=== PATIENT | female | born 1940 | race Two or more races ===

== ENCOUNTER 2025-11-09 07:12 | Inpatient (IN) | payer OTHER, MEDICAID ==
[~2025-11-09] VITALS: Ht 154.9 cm; Wt 59.5 kg
[2025-11-09] MEDS: SODIUM CHLORIDE 0.9% 1,000 ML IV ONE ×2 (07:30→09:14)
--- NOTE | 2025-11-09 07:39 | ED.PDOC ---
History of Present Illness HPI Comments 85-year-old female who is Syriac-speaking BIBA with prior medical history of MANOKOTAK, hypertension, diabetes(took insulin prior to bed last night) and a chief complaint of hyperglycemia. EMS report on the patient being found altered by family at home of a GCS 9 and unresponsive when EMS arrived on scene the patient did have a blood sugar of 34 and was given 250 of D10 EN route. In the ER the patient is currently GCS 15 A&O x4. Denies any other symptoms at this time. Denies chills, fever, N/V/D, SOB, CP. No other associated symptoms, modifiers, recent injuries or sick contacts present at this time. Time Seen by MD: 07:35 Reviewed Notes: Nurses Notes, Button Tufter Notes, Medications, Allergies Allergies: Coded Allergies: NO KNOWN ALLERGIES (Unverified , 11/09/25) Information Source: Patient, Emergency Med Personnel Mode of Arrival: EMS Severity: Moderate Timing: Hours Duration: Since onset, Hours Prehospital treatment: None Past Medical History PAST MEDICAL HISTORY: DM, HTN Past Medical History (Other): MAN[place]OTAK Surgical History: Denies all surgeries SEISMOGRAPH SUPERVISOR History: No Pertinent SEISMOGRAPH SUPERVISOR History Family History Family History: Reviewed,noncontributory to illness, Unknown Social History Smoker: Non-Smoker Alcohol: Denies ETOH Use Drugs: Denies Drug Use Lives In: Home Constitutional: reports: others (Hyperglycemia); denies: chills, diaphoresis, fatigue, fever, malaise, sweats, weakness EENTM: denies: blurred vision, double vision, ear bleeding, ear discharge, ear drainage, ear pain, ear ringing, eye pain, eye redness, hearing loss, mouth pain, mouth swelling, nasal discharge, nose bleeding, nose congestion, nose pain, photophobia, tearing, throat pain, throat swelling, voice changes, others Respiratory: denies: cough, hemoptysis, orthopnea, SOB at rest, shortness of breath, SOB with excertion, stridor, wheezing, others Cardiovascular: denies: chest pain, dizzy spells, diaphoresis, Dyspnea on exertion, edema, irregular heart beat, left arm pain, lightheadedness, palpitations, PND, syncope, others Gastrointestinal: denies: abdomen distended, abdominal pain, blood streaked bowels, constipated, diarrhea, dysphagia, difficulty swallowing, hematemesis, melena, nausea, poor appetite, poor fluid intake, rectal bleeding, rectal pain, vomiting, others Genitourinary: denies: abnormal vagina bleeding, burning, dyspareunia, dysuria, flank pain, frequency, hematuria, incontinence, pain, , vagina discharge, urgency, others Neurological: denies: dizziness, fainting, headache, left sided numbness, left sided weakness, numbness, paresthesia, pre-existing deficit, right sided numbness, right sided weakness, seizure, speech problems, tingling, tremors, weakness, others Musculoskeletal: denies: back pain, gout, joint pain, joint swelling, muscle pain, muscle stiffness, neck pain, others Integumetry: denies: bruises, change in color, change in hair/nails, dryness, laceration, lesions, lumps, rash, wounds, others Allergic/Immunocompromised: denies: Difficulty Healing, Frequent Infections, Hives, Itching, others Hematologic/Lymphatic: denies: anemia, blood clots, easy bleeding, easy bruising, swollen glands, others Endocrine: denies: excessive hunger, excessive sweating, excessive thirst, excessive urination, flushing, intolerance to cold, intolerance to heat, unexplained weight gain, unexplained weight loss, others Psychiatric: denies: anxiety, bipolar disorder, depression, hopeless, panic disorder, schizophrenia, sleepless, suicidal, others All Other Systems: Reviewed and Negative Physical Exam General Appearance: Moderate Distress, Normal HEENT: Normal ENT Inspection, Pharynx Normal, TMs Normal Neck: Full Range of Motion, Non-Tender, Normal, Normal Inspection Respiratory: Chest Non-Tender, Lungs Clear, No Accessory Muscle Use, No Respiratory Distress, Normal Breath Sounds Cardiovascular: No Edema, No JVD, No Murmur, No Gallop, Normal Peripheral Pulses, Regular Rate/Rhythm Breast Exam: Deferred Gastrointestinal: No Organomegaly, Non Tender, No Pulsatile Mass, Normal Bowel Sounds, Soft Genitalia: Deferred Pelvic: Deferred Rectal: Deferred Extremities: No calf tenderness, Normal capillary refill, Normal inspection, Normal range of motion, Non-tender, No pedal edema Musculoskeletal : Apperance: Normal 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 Was a procedure done?: No Differential Dx Considerations may include: Anemia Electrolyte imbalance X-Ray, Labs, Meds, VS Vital Signs Date Time Temp Pulse Resp B/P (MAP) Pulse Ox O2 Delivery O2 Flow Rate FiO2 11/09/25 09:05 93 18 95 Room Air 11/09/25 09:05 98.2 93 18 119/67 (84) 95 98.2 11/09/25 07:49 97.4 98 16 137/96 95 97.4 Lab Test 11/09/25 08:57 11/09/25 08:50 11/09/25 07:58 Range/Units POC Glucose 98 70-106 mg/dl White Blood Count 9.6 4.4-10.8 10^3/uL Red Blood Count 4.40 4.0-5.20 10^6/uL Hemoglobin 11.5 L 12.2-16.2 g/dL Hematocrit 35.2 L 36.0-46.0 % Mean Corpuscular Volume 80.1 80.0-100.0 fL Mean Corpuscular Hemoglobin 26.2 L 28.0-32.0 pg Mean Corpuscular Hemoglobin Concent 32.7 32.0-36.0 g/dL Red Cell Distribution Width 16.7 H 11.8-14.3 % Platelet Count 387 140-450 10^3/uL Mean Platelet Volume 8.1 6.9-10.8 fL Neutrophils (%) (Auto) 79.3 37.0-80.0 % Lymphocytes (%) (Auto) 12.3 10.0-50.0 % Monocytes (%) (Auto) 7.9 0.0-12.0 % Eosinophils (%) (Auto) 0.3 0.0-7.0 % Basophils (%) (Auto) 0.2 0.0-2.0 % Neutrophils # (Auto) 7.6 1.6-8.6 10 ^3/uL Lymphocytes # (Auto) 1.2 0.4-5.4 10 ^3/uL Monocytes # (Auto) 0.8 0-1.3 10 ^3/uL Eosinophils # (Auto) 0 0-0.8 10 ^3/uL Basophils # (Auto) 0 0-0.2 10 ^3/uL Nucleated Red Blood Cells 0.1 % Sodium Level 139 136-145 mmol/L Potassium Level 4.0 3.5-5.1 mmol/L Chloride Level 104 98-107 mmol/L Carbon Dioxide Level 25 20-31 mmol/L Anion Gap 10 5-15 Blood Urea Nitrogen 15 9-23 mg/dL Creatinine 1.00 0.550-1.02 mg/dL Glomerular Filtration Rate Calc 56 >90 mL/min BUN/Creatinine Ratio 15.0 10.0-20.0 Serum Glucose 96 74-106 mg/dL Calcium Level 9.6 8.7-10.4 mg/dL Troponin I High Sensitivity 5 </=34 ng/L Urine Color Light-yellow Yellow Urine Clarity Clear Clear Urine pH 5.5 5.0-9.0 Urine Specific [place] 1.010 1.001-1.035 Urine Protein 1+ H Negative Urine Ketones Negative Negative Urine Blood Trace H Negative /uL Urine Nitrite Negative Negative Urine Bilirubin Negative Negative Urine Urobilinogen Normal Negative mg/dL Urine Leukocyte Esterase Negative Negative /uL Urine RBC <1 0 - 4 /hpf Urine Microscopic WBC 1 0-5 /HPF Urine Squamous Epithelial Cells Few <5 /hpf Urine Bacteria Few H None Seen /hpf Urine Glucose Normal Normal mg/dL Current Medications Medications (Trade) Dose Ordered Sig/Isis Route Start Time Stop Time Status Last Admin Sodium Chloride 1,000 ml @ 1,000 mls/hr Q1H ONCE IV 11/09/25 07:30 11/09/25 08:29 DC 11/09/25 09:14 Patient is slightly confused pain Was altered in the field. Low blood sugar. Vitals stable. Was given dextrose prior to coming to the ER. Slightly more alert. Establish intravenous access. Continue to monitor. EKG reviewed does not show any acute changes. [place] approved inpatient admission [id number]. Time of 1ST Reevaluation: 08:05 Reevaluation 1ST: Unchanged Patient Education/Counseling: Diagnosis, Treatment, Prognosis Family Education/Counseling: No Family Present SEPSIS Sepsis Screen Physician Orders Chest Portable (11/09/25 07:30) Imaging Transfer Request (11/09/25 13:27) Vital Signs Date Time Temp Pulse Resp B/P (MAP) Pulse Ox O2 Delivery O2 Flow Rate FiO2 11/09/25 09:05 93 18 95 Room Air 11/09/25 09:05 98.2 93 18 119/67 (84) 95 98.2 11/09/25 07:49 97.4 98 16 137/96 95 97.4 Laboratory Tests Test 11/09/25 08:50 White Blood Count 9.6 10^3/uL (4.4-10.8) Medications Medications Dose Ordered Sig/Isis Route Start Time Stop Time Status Last Admin Dose Admin Sodium Chloride 1,000 ml @ 1,000 mls/hr Q1H ONCE IV 11/09/25 07:30 11/09/25 08:29 DC 11/09/25 09:14 Departure 1 Departure Time of Disposition: 08:03 Impression: Primary Impression: Uncontrolled diabetes mellitus Qualified Codes: E13.649 - Other specified diabetes mellitus with hypoglycemia without coma Additional Impression: Metabolic encephalopathy Disposition: ADMITTED INPATIENT Admit to: Med Surg Condition: Guarded Critical Care Note Critical Care Time?: Yes (90 min-critical care time only) Stability Stability form required: No Heart Score Heart Score: Heart Score Response (Comments) Value History Slightly Suspicious 0 EKG Normal 0 Age >65 2 Risk Factors >3 or Hx ASHD 2 Troponin Normal limit 0 Total 4 I personally scribed for ENRIQUETA MARAVILLA MD ([email or web address]) on 11/09/25 at 07:39. Electronically submitted by Al Esquivel ([email or web address]). ENRIQUETA MARAVILLA MD Nov 09, 2025 07:39
--- NOTE | 2025-11-09 08:45 | DVH ---
PROCEDURE: XY CHEST PORTABLE 11/09/2025 08:11 AM INDICATION: sob COMPARISON: None FINDINGS: Lines and Tubes: None Cardiomediastinal: The heart is normal in size. Pulmonary vasculature is within normal limits. Lungs: Bilateral perihilar bronchial cuffing. No lobar consolidation. The costophrenic angles are clear. No pleural effusion. Bones/soft tissues: No acute abnormality noted. IMPRESSION: Findings suggestive of bronchitis/atypical pneumonia. Recommend clinical and biochemical correlation.
[2025-11-09 09:21] LABS: Hemoglobin 11.5 g/dL (12.2-16.2)
[2025-11-09 09:22] LABS: Hematocrit 35.2 % (36.0-46.0); Mean Corpuscular Hemoglobin 26.2 pg (28.0-32.0); Mean Corpuscular Volume 80.1 fL (80.0-100.0); Nucleated Red Blood Cells % 0.1 %
[2025-11-09 09:25] LABS: Chloride 104 mmol/L (98-107); Potassium 4.0 mmol/L (3.5-5.1); Sodium 139 mmol/L (136-145)
[2025-11-09 09:26] LABS: Anion Gap 10 (5-15); Calcium 9.6 mg/dL (8.7-10.4); Carbon Dioxide 25 mmol/L (20-31)
[2025-11-09 09:31] LABS: BUN/Creatinine Ratio 15.0 (10.0-20.0); Blood Urea Nitrogen 15 mg/dL (9-23); Glucose 96 mg/dL (74-106)
[2025-11-09 10:38] LABS: Urine Protein, UAD 1+ (Negative)
[2025-11-09] MEDS ORDERED: PYRI1TAB11 PO (15:55)
[2025-11-09] MEDS ORDERED: LOSA-534 PO (15:55)
[2025-11-09] MEDS ORDERED: MEMA1TAB5 PO (15:55)
[2025-11-09] MEDS ORDERED: METF-372 PO (15:55)
[2025-11-09] MEDS ORDERED: ROSU20TA56 PO (15:55)
[2025-11-09] MEDS ORDERED: LEVO50TA7 PO (15:55)
[2025-11-09] MEDS ORDERED: GLIP10TA9 PO (15:55)
[2025-11-09] MEDS ORDERED: FLUO40CA PO (15:55)
[2025-11-09] MEDS ORDERED: ONDANSETRON HCL 4 MG/2 ML VIAL IV PRN (16:00)
[2025-11-09] MEDS ORDERED: DEXTROSE (50%) 50ML SYRG IV PRN (16:00)
[2025-11-09] MEDS ORDERED: DOCUSATE SOD 100 MG CAP PO PRN (16:00)
[2025-11-09] MEDS ORDERED: ACETAMINOPHEN 325 MG TAB PO PRN (16:00)
[2025-11-09] MEDS ORDERED: HYDROcodone-ACET 5/325MG TAB PO PRN (16:00)
--- NOTE | 2025-11-09 16:37 | DVHHP2 ---
History of Present Illness Reason for Visit: Hypoglycemia History of Present Illness Steph Menard is an 85-year-old female with past medical history of diabetes, hypothyroidism, Alzheimer, hypertension, and hyperlipidemia, who was brought to the hospital by EMS for hypoglycemia. Patient lives with her . According to family her could not wake her up this morning so he called EMS. When EMS arrived her blood sugar was in the 30's. They gave her dextrose and she became alert. Family states that most of the time her pulls up her insulin dose. However, last night she did it herself and she may of given herself too much insulin. Smoke: No ALCOHOL: none Lives: with Family Domestic Violence: Neg Review of Systems Constitutional: No: Fever, Chills, Sweats, Weakness, Malaise, Other Eyes: No: Pain, Vision change, Conjunctivae inflammation, Eyelid inflammation, Other, Redness ENT: No: Ear pain, Ear discharge, Nose pain, Nose discharge, Nose congestion, Mouth pain, Mouth swelling, Throat pain, Throat swelling, Other Respiratory: No: Cough, Dry, Shortness of breath, SOB with excertion, Wheezing, Hemoptysis, Pleuritic Pain, Sputum, Wheezing, Other Cardiovascular: No: Chest Pain, Palpitations, Orthopnea, Paroxysmal Noc. Dyspnea, Edema, Lt Headedness, Other Gastrointestinal: No: Nausea, Vomiting, Abdominal Pain, Diarrhea, Constipation, Melena, Hematochezia, Other Genitourinary: No Dysuria, No Frequency, No Incontinence, No Hematuria, No Retention, No Other Musculoskeletal: No: other, neck pain, shoulder pain, arm pain, back pain, hand pain, leg pain, foot pain Skin: No: Rash, Lesions, Jaundice, Bruising, Other Neurological: Weakness, Incoordination, Change in speech, Confusion, Other (blood sugar in the 30's); No: Numbness, Seizures Allergies: Coded Allergies: NO KNOWN ALLERGIES (Unverified , 11/09/25) Medications Current Medications Medications Dose Ordered Sig/Isis Route Start Time Stop Time Status Last Admin Dose Admin Sodium Chloride 10 ml Q8HR IV 11/09/25 22:00 UNV Acetaminophen/ Hydrocodone Bitart 1 tab Q4HP PRN PO 11/09/25 16:00 UNV Ondansetron HCl 4 mg Q4HP PRN IV 11/09/25 16:00 UNV Docusate Sodium 100 mg BIDPRN PRN PO 11/09/25 16:00 UNV Acetaminophen 650 mg Q6HP PRN PO 11/09/25 16:00 UNV Exam Vital Signs Vital Signs Date Time Temp Pulse Resp B/P (MAP) Pulse Ox O2 Delivery O2 Flow Rate FiO2 11/09/25 15:42 97.9 94 18 123/58 (79) 96 97.9 11/09/25 09:05 Room Air General Appearance: Alert, Oriented X3, Cooperative, No acute distress HEENT: Atraumatic, PERRLA, Mucous membr. moist/pink Respiratory: Clear to auscultation, Normal air movement Cardiovascular: Regular rate, Normal S1, Normal S2, No murmurs Abdominal: Normal bowel sounds, Soft, No tenderness, No hepatospenomegaly Extremities: No clubbing, No cyanosis, No edema, Normal pulses Skin: No rashes, No breakdown, No significant lesion Neuro: Normal gait, Normal speech, Strength at 5/5 X4 ext Psych/Mental Status: Mental status NL, Mood NL Labs/Xrays Labs Test 11/09/25 08:57 11/09/25 08:50 11/09/25 07:58 Range/Units POC Glucose 98 70-106 mg/dl White Blood Count 9.6 4.4-10.8 10^3/uL Red Blood Count 4.40 4.0-5.20 10^6/uL Hemoglobin 11.5 L 12.2-16.2 g/dL Hematocrit 35.2 L 36.0-46.0 % Mean Corpuscular Volume 80.1 80.0-100.0 fL Mean Corpuscular Hemoglobin 26.2 L 28.0-32.0 pg Mean Corpuscular Hemoglobin Concent 32.7 32.0-36.0 g/dL Red Cell Distribution Width 16.7 H 11.8-14.3 % Platelet Count 387 140-450 10^3/uL Mean Platelet Volume 8.1 6.9-10.8 fL Neutrophils (%) (Auto) 79.3 37.0-80.0 % Lymphocytes (%) (Auto) 12.3 10.0-50.0 % Monocytes (%) (Auto) 7.9 0.0-12.0 % Eosinophils (%) (Auto) 0.3 0.0-7.0 % Basophils (%) (Auto) 0.2 0.0-2.0 % Neutrophils # (Auto) 7.6 1.6-8.6 10 ^3/uL Lymphocytes # (Auto) 1.2 0.4-5.4 10 ^3/uL Monocytes # (Auto) 0.8 0-1.3 10 ^3/uL Eosinophils # (Auto) 0 0-0.8 10 ^3/uL Basophils # (Auto) 0 0-0.2 10 ^3/uL Nucleated Red Blood Cells 0.1 % Sodium Level 139 136-145 mmol/L Potassium Level 4.0 3.5-5.1 mmol/L Chloride Level 104 98-107 mmol/L Carbon Dioxide Level 25 20-31 mmol/L Anion Gap 10 5-15 Blood Urea Nitrogen 15 9-23 mg/dL Creatinine 1.00 0.550-1.02 mg/dL Glomerular Filtration Rate Calc 56 >90 mL/min BUN/Creatinine Ratio 15.0 10.0-20.0 Serum Glucose 96 74-106 mg/dL Calcium Level 9.6 8.7-10.4 mg/dL Troponin I High Sensitivity 5 </=34 ng/L Urine Color Light-yellow Yellow Urine Clarity Clear Clear Urine pH 5.5 5.0-9.0 Urine Specific [place] 1.010 1.001-1.035 Urine Protein 1+ H Negative Urine Ketones Negative Negative Urine Blood Trace H Negative /uL Urine Nitrite Negative Negative Urine Bilirubin Negative Negative Urine Urobilinogen Normal Negative mg/dL Urine Leukocyte Esterase Negative Negative /uL Urine RBC <1 0 - 4 /hpf Urine Microscopic WBC 1 0-5 /HPF Urine Squamous Epithelial Cells Few <5 /hpf Urine Bacteria Few H None Seen /hpf Urine Glucose Normal Normal mg/dL PROCEDURE: XY CHEST PORTABLE 11/09/2025 08:11 AM FINDINGS: Lines and Tubes: None Cardiomediastinal: The heart is normal in size. Pulmonary vasculature is within normal limits. Lungs: Bilateral perihilar bronchial cuffing. No lobar consolidation. The costophrenic angles are clear. No pleural effusion. Bones/soft tissues: No acute abnormality noted. IMPRESSION: Findings suggestive of bronchitis/atypical pneumonia. Recommend clinical and biochemical correlation. SEPSIS Sepsis Screen Date sepsis recognized/suspect: Nov 09, 2025 Time Sepsis recognized/suspect: 0754 Recent Procedure: No On Antibiotic Therapy: No Respiratory Rate >20: No Heart Rate >90: Yes Temp<36 C (96.8 F) or >38.3 C: No SBP <90 or MAP <65 mmHG: No New Acute Mental Status Change: No Is the patient on CPAP, BIPAP,: No Physician Orders Imaging Transfer Request (11/09/25 13:27) Admit (11/09/25 15:47) Code Status (11/09/25 15:47) 2 Gm Sodium Diet (11/09/25 Dinner) Sodium Chloride Lock (Saline Lock Ns) (11/09/25 22:00) Hydrocodone-Acet 5/325mg Tab ([place] 5/32 (11/09/25 16:00) Ondansetron Hcl (Zofran) (11/09/25 16:00) Docusate Sodium Capsule (Colace Capsule) (11/09/25 16:00) Fall Risk Precautions In Place QSHIFT (11/09/25 15:47) Complete Blood Count (11/10/25 04:00) Comprehensive Metabolic Panel (11/10/25 04:00) Condition: Serious (11/09/25 15:47) Acetaminophen Tablet (Tylenol Tablet) (11/09/25 16:00) Glucose Blood (Accu-Chek Comfort Curve T (11/09/25 17:00) Mild Sliding Scale (11/09/25 17:00) Dextrose 50% Syringe (11/09/25 16:00) Levothyroxine Tablet (Synthroid Tablet) (11/10/25 07:00) Losartan Tablet (Cozaar Tablet) (11/10/25 10:00) (Nf) Fluoxetine Hcl (11/10/25 10:00) (Nf) Glipizide (11/09/25 22:00) (Nf) Memantine Hydrochloride (Memantine (11/09/25 22:00) (Nf) Metformin Hydrochloride (Metformin (11/09/25 22:00) (Nf) Pyridoxine Hcl (Vitamin B6) (11/10/25 10:00) (Nf) Rosuvastatin Calcium (11/09/25 22:00) Vital Signs Date Time Temp Pulse Resp B/P (MAP) Pulse Ox O2 Delivery O2 Flow Rate FiO2 11/09/25 15:42 97.9 94 18 123/58 (79) 96 97.9 11/09/25 09:05 93 18 95 Room Air 11/09/25 09:05 98.2 93 18 119/67 (84) 95 98.2 Laboratory Tests Test 11/09/25 08:50 White Blood Count 9.6 10^3/uL (4.4-10.8) Medications Medications Dose Ordered Sig/Isis Route Start Time Stop Time Status Last Admin Dose Admin Sodium Chloride 1,000 ml @ 1,000 mls/hr Q1H ONCE IV 11/09/25 07:30 11/09/25 08:29 DC 11/09/25 09:14 1,000 MLS/HR Assessment/Plan Assessment/Plan Assessment: Uncontrolled diabetes mellitus, Hypoglycemia, Hypertension, Plan: Admit to Med-Surg, Accu checks with sliding scale, A1c, Home medication reconciled, Plan discussed with: Patient, Spouse, Son My Orders Orders - KARLOS OSUNA Procedure Category Date Status Time Admit ADMIT 11/09/25 Transmitted 15:47 Code Status CODE 11/09/25 Transmitted 15:47 2 Gm Sodium Diet DIET 11/09/25 Transmitted Dinner Sodium Chloride Lock PHA 11/09/25 Logged (Saline Lock Ns) 22:00 Hydrocodone-Acet PHA 11/09/25 Logged 5/325mg Tab ([place] 16:00 Ondansetron Hcl PHA 11/09/25 Logged (Zofran) 16:00 Docusate Sodium PHA 11/09/25 Transmitted Capsule (Colace 16:00 Fall Risk Precautions CELESTINO 11/09/[address] 15:47 Complete Blood Count LAB 11/10/25 Verified 04:00 Comprehensive LAB 11/10/25 Verified Metabolic Panel 04:00 Condition: Serious CELESTINO 11/09/25 In Process 15:47 Acetaminophen Tablet PHA 11/09/25 Transmitted (Tylenol Tablet) 16:00 Glucose Blood PHA 11/09/25 Transmitted (Accu-Chek Comfort 17:00 Mild Sliding Scale PHA 11/09/25 Transmitted 17:00 Dextrose 50% Syringe PHA 11/09/25 Transmitted 16:00 Levothyroxine Tablet PHA 11/10/25 Transmitted (Synthroid Tablet) 07:00 Losartan Tablet PHA 11/10/25 Transmitted (Cozaar Tablet) 10:00 (Nf) Fluoxetine Hcl PHA 11/10/25 Transmitted 10:00 (Nf) Glipizide PHA 11/09/25 Transmitted 22:00 (Nf) Memantine PHA 11/09/25 Transmitted Hydrochloride 22:00 (Nf) Metformin PHA 11/09/25 Transmitted Hydrochloride 22:00 (Nf) Pyridoxine Hcl PHA 11/10/25 Transmitted (Vitamin B6) 10:00 (Nf) Rosuvastatin PHA 11/09/25 Transmitted Calcium 22:00 Date of Service: Nov 09, 2025 Billing Provider: KARLOS OSUNA Common Visit Codes: [id number] INP/OBS CARE (MOD) KARLOS OSUNA Nov 09, 2025 16:37
[2025-11-09] MEDS ORDERED: INSUINJ2 SC ×2 (16:40)
[2025-11-09] MEDS: glipiZIDE 5 MG TAB PO SCH (17:00)
[2025-11-09] MEDS: InsuLIN REG 1unit/0.01ml Soln (100units/ml) SC SCH (17:00)
[2025-11-09] MEDS: ACCU-CHEK COMFORT CURVE STRIP VI SCH (17:00)
[2025-11-09 17:08] VITALS: BP 116/59; PULSE 94; PULSE 96; RESP 16; RESP 19; TEMP 98.4; TEMP 98.6; O2SAT 94; O2SAT 97
[2025-11-09] MEDS: INSULIN NPH Isophane (HUMAN) 1unit/0.01ml Susp(100units/ml) SC SCH (18:00)
[2025-11-09 21:00] VITALS: BP 130/62; PULSE 106; RESP 16; TEMP 98.2; O2SAT 96
[2025-11-09] MEDS: SODIUM CHLOR 0.9% PF (SALINE LOCK) 10ML VIAL/SYR IV SCH (21:27)
[2025-11-09] MEDS: ATORVASTATIN 20 MG TAB PO SCH (21:27)
[2025-11-09] MEDS: MEMANTINE HCL 5 MG TAB PO SCH (21:27)
[2025-11-09] MEDS ORDERED: PATIENTS OWN MEDICATION (Metformin Hydrochloride (Metformin Hcl) 1 TAB) PO SCH (22:00)
[2025-11-09] MEDS ORDERED: ROSUVASTATIN CALCIUM 20 MG PO SCH (22:00)
[2025-11-09] MEDS ORDERED: PATIENTS OWN MEDICATION (Memantine Hydrochloride (Memantine HCl) 10 MG) PO SCH (22:00)
[2025-11-10 00:46] VITALS: BP 114/64; PULSE 59; RESP 17; TEMP 97.9; O2SAT 97
[2025-11-10 05:00] VITALS: BP 120/62; PULSE 84; RESP 17; TEMP 97.9; O2SAT 96
[2025-11-10 05:13] LABS: Hematocrit 44.0 % (36.0-46.0); Hemoglobin 15.1 g/dL (12.2-16.2); Mean Corpuscular Hemoglobin 29.6 pg (28.0-32.0); Mean Corpuscular Volume 86.6 fL (80.0-100.0); Nucleated Red Blood Cells % 0.1 %
[2025-11-10 05:43] LABS: Alanine Aminotransferase 21 U/L (7-40); Albumin 4.4 g/dL (3.2-4.8); Anion Gap 10 (5-15); BUN/Creatinine Ratio 14.9 (10.0-20.0); Blood Urea Nitrogen 10 mg/dL (9-23); Calcium 9.2 mg/dL (8.7-10.4); Carbon Dioxide 22 mmol/L (20-31); Potassium 4.0 mmol/L (3.5-5.1); Sodium 140 mmol/L (136-145); Total Protein 7.5 g/dL (5.7-8.2)
[2025-11-10 05:44] LABS: Bilirubin, Total 0.3 mg/dL (0.2-1.0)
[2025-11-10 05:49] LABS: Alkaline Phosphatase 172 U/L (46-116); Chloride 108 mmol/L (98-107); Glucose 146 mg/dL (74-106)
[2025-11-10] MEDS: LEVOTHYROXINE SODIUM 50 MCG TAB PO SCH (06:05)
[2025-11-10] MEDS: INSULIN NPH Isophane (HUMAN) 1unit/0.01ml Susp(100units/ml) SC SCH (06:19)
[2025-11-10] MEDS: PYRIDOXINE HCL 50 MG TAB PO SCH (09:23)
[2025-11-10] MEDS: LOSARTAN POTASSIUM 50 MG TAB PO SCH (09:24)
[2025-11-10 09:34] VITALS: BP 116/62; PULSE 97; RESP 17; TEMP 97.8; O2SAT 97
[2025-11-10] MEDS ORDERED: glipiZIDE 5 MG TAB PO SCH (10:00)
--- NOTE | 2025-11-10 11:22 | DVHPN2 ---
Subjective 85-year-old female was admitted due hypoglycemia because family were not able to wake her up Her sugar was in the 30s She takes metformin and glipizide and NPH at home Changes from previous H/P or p: Changes Eyes: No Pain, No Vision change, No Conjunctivae inflammation, No Eyelid inflammation, No Other, No Redness ENT: No Ear pain, No Ear discharge, No Nose pain, No Nose discharge, No Nose congestion, No Mouth pain, No Mouth swelling, No Throat pain, No Throat swelling, No Other Cardiovascular: No Chest Pain, No Palpitations, No Orthopnea, No Paroxysmal Noc. Dyspnea, No Edema, No Lt Headedness, No Other Respiratory: No Cough, No Dry, No Shortness of breath, No SOB with excertion, No Wheezing, No Hemoptysis, No Pleuritic Pain, No Sputum, No Other Gastrointestinal: No Nausea, No Vomiting, No Abdominal Pain, No Diarrhea, No Constipation, No Melena, No Hematochezia, No Other Genitourinary: No Dysuria, No Frequency, No Incontinence, No Hematuria, No Retention, No Other Musculoskeletal: No other, No neck pain, No shoulder pain, No arm pain, No back pain, No hand pain, No leg pain, No foot pain Skin: No Rash, No Lesions, No Jaundice, No Bruising, No Other Objective Vitals Vital Signs Date Time Temp Pulse Resp B/P (MAP) Pulse Ox O2 Delivery O2 Flow Rate FiO2 11/10/25 09:34 97.8 97 17 116/62 (80) 97 97.8 11/09/25 20:00 Room Air* 0 21 Intake/Output Intake and Output 11/10/25 07:00 Intake Total 100 ml Balance 100 ml Intake Oral 100 ml # Voids 4 General Appearance: Alert, Oriented X3 Lungs: Clear to auscultation, Normal air movement Cardiovascular: Regular rate, Normal S1, Normal S2, No murmurs Abdomen: Normal bowel sounds, Soft, No tenderness Extremities: No edema Medications Current Medications Medications Dose Ordered Sig/Isis Route Start Time Stop Time Status Last Admin Dose Admin Sodium Chloride 10 ml Q8HR IV 11/09/25 22:00 11/10/25 06:01 10 ML Acetaminophen/ Hydrocodone Bitart 1 tab Q4HP PRN PO 11/09/25 16:00 Ondansetron HCl 4 mg Q4HP PRN IV 11/09/25 16:00 Docusate Sodium 100 mg BIDPRN PRN PO 11/09/25 16:00 Acetaminophen 650 mg Q6HP PRN PO 11/09/25 16:00 Diagnostic Test (Pha) 1 strip ACHS 11/09/25 17:00 11/10/25 06:18 1 STRIP Insulin Human Regular ACHS SC 11/09/25 17:00 11/09/25 21:28 4 UNITS Dextrose 50 ml UD PRN IV 11/09/25 16:00 Levothyroxine Sodium 50 mcg AMHY PO 11/10/25 07:00 11/10/25 06:05 50 MCG Losartan Potassium 50 mg DAILY PO 11/10/25 10:00 11/10/25 09:24 50 MG Patient Own Medication 10 mg DAILY PO 11/10/25 10:00 UNV Patient Own Medication 20 mg BID PO 11/09/25 22:00 UNV Patient Own Medication 10 mg BID PO 11/09/25 22:00 UNV Patient Own Medication 1 tab BID PO 11/09/25 22:00 UNV Patient Own Medication 100 mg DAILY PO 11/10/25 10:00 UNV Patient Own Medication 20 mg HS PO 11/09/25 22:00 UNV Insulin Human NPH 5 units QAM SC 11/10/25 07:00 11/10/25 06:19 5 UNITS Insulin Human NPH 15 units QPM SC 11/09/25 18:00 Fluoxetine HCl 10 mg DAILY PO 11/10/25 10:00 11/10/25 09:24 10 MG Glipizide 20 mg BIDAC PO 11/09/25 17:00 11/10/25 06:04 20 MG Memantine 10 mg BID PO 11/09/25 22:00 11/10/25 09:23 10 MG Metformin HCl 1,000 mg BIDWM PO 11/09/25 18:00 11/10/25 08:00 1,000 MG Pyridoxine HCl 100 mg DAILY PO 11/10/25 10:00 11/10/25 09:23 100 MG Atorvastatin Calcium 80 mg HS PO 11/09/25 22:00 11/09/25 21:27 80 MG Laboratory Results Laboratory Tests 11/10/25 04:45 Chemistry Test 11/10/25 04:45 Albumin 4.4 g/dL (3.2-4.8) Calcium Level 9.2 mg/dL (8.7-10.4) Total Protein 7.5 g/dL (5.7-8.2) LFT Test 11/10/25 04:45 Alanine Aminotransferase (ALT) 21 U/L (7-40) Alkaline Phosphatase 172 U/L (46-116) H Aspartate Amino Transferase (AST) 23 U/L (13-40) Total Bilirubin 0.3 mg/dL (0.2-1.0) HgA1c, TSH Test 11/10/25 04:45 Hemoglobin A1c 5.1 % A1C (<5.7) Urinalysis Test 11/09/25 07:58 Urine Color Light-yellow (Yellow) Urine Clarity Clear (Clear) Urine pH 5.5 (5.0-9.0) Urine Specific [place] 1.010 (1.001-1.035) Urine Protein 1+ (Negative) H Urine Ketones Negative (Negative) Urine Blood Trace /uL (Negative) H Urine Nitrite Negative (Negative) Urine Bilirubin Negative (Negative) Urine Urobilinogen Normal mg/dL (Negative) Urine Leukocyte Esterase Negative /uL (Negative) Urine RBC <1 /hpf (0 - 4) Urine Microscopic WBC 1 /HPF (0-5) Urine Squamous Epithelial Cells Few /hpf (<5) Urine Bacteria Few /hpf (None Seen) H Urine Glucose Normal mg/dL (Normal) Assessment/Plan Assessment/Plan Metabolic encephalopathy due to hypoglycemia Hypoglycemia Type 2 diabetes Alzheimer's dementia Hypertension Hypothyroidism Mixed hyperlipidemia Plan Blood glucose is better now Hold insulin Hold glipizide Continue metformin Monitor overnight Full code Not stable for transfer Discussed with the son over the phone Plan discussed with: Patient, Son Date of Service: Nov 10, 2025 Billing Provider: DAKOTAH COTO MD Common Visit Codes: [id number] INP/OBS CARE(HIGH) Secondary Visit Codes: [id number] CARE PLAN 30 MINUTES DAKOTAH COTO MD Nov 10, 2025 11:22
[2025-11-10 14:30] VITALS: BP 131/77; PULSE 85; RESP 17; TEMP 97.3; O2SAT 96
[2025-11-10 17:00] VITALS: BP 119/65; PULSE 89; RESP 17; TEMP 97.7; O2SAT 95
[2025-11-10 21:00] VITALS: BP 124/71; PULSE 90; RESP 18; TEMP 97.2; O2SAT 96
[2025-11-11 01:06] VITALS: BP 116/54; PULSE 89; RESP 18; TEMP 97; O2SAT 97
[2025-11-11 05:28] VITALS: BP 100/54; PULSE 83; RESP 18; TEMP 97; O2SAT 93
[2025-11-11 06:36] LABS: Chloride 106 mmol/L (98-107); Potassium 4.0 mmol/L (3.5-5.1); Sodium 140 mmol/L (136-145)
[2025-11-11 06:37] LABS: Anion Gap 9 (5-15); Carbon Dioxide 25 mmol/L (20-31)
[2025-11-11 06:38] LABS: Calcium 9.2 mg/dL (8.7-10.4)
[2025-11-11 06:42] LABS: BUN/Creatinine Ratio 12.0 (10.0-20.0); Blood Urea Nitrogen 11 mg/dL (9-23); Glucose 90 mg/dL (74-106)
[2025-11-11 09:00] VITALS: BP 98/53; PULSE 87; RESP 18; TEMP 96.7; O2SAT 91
[2025-11-11 13:00] VITALS: BP 114/65; PULSE 97; RESP 18; TEMP 97; O2SAT 93
[2025-11-11 16:20] VITALS: BP 98/53; TEMP 36.1
--- NOTE | 2025-11-11 16:57 | DVHDS2 ---
Discharge Summary Date of Admission Nov 09, 2025 at 15:47 Date of Discharge: Nov 11, 2025 Labs/Diagnostic Data: Laboratory Results Test 11/11/25 10:57 11/11/25 05:17 11/10/25 04:45 11/09/25 08:50 POC Glucose 134 mg/dl (70-106) Sodium Level 140 mmol/L (136-145) Potassium Level 4.0 mmol/L (3.5-5.1) Chloride Level 106 mmol/L (98-107) Carbon Dioxide Level 25 mmol/L (20-31) Anion Gap 9 (5-15) Blood Urea Nitrogen 11 mg/dL (9-23) Creatinine 0.92 mg/dL (0.550-1.02) Glomerular Filtration Rate Calc 61 mL/min (>90) BUN/Creatinine Ratio 12.0 (10.0-20.0) Serum Glucose 90 mg/dL (74-106) Calcium Level 9.2 mg/dL (8.7-10.4) White Blood Count 7.5 10^3/uL (4.4-10.8) Red Blood Count 5.09 10^6/uL (4.0-5.20) Hemoglobin 15.1 g/dL (12.2-16.2) Hematocrit 44.0 % (36.0-46.0) Mean Corpuscular Volume 86.6 fL (80.0-100.0) Mean Corpuscular Hemoglobin 29.6 pg (28.0-32.0) Mean Corpuscular Hemoglobin Concent 34.2 g/dL (32.0-36.0) Red Cell Distribution Width 13.5 % (11.8-14.3) Platelet Count 288 10^3/uL (140-450) Mean Platelet Volume 7.9 fL (6.9-10.8) Neutrophils (%) (Auto) 75.4 % (37.0-80.0) Lymphocytes (%) (Auto) 22.6 % (10.0-50.0) Monocytes (%) (Auto) 1.6 % (0.0-12.0) Eosinophils (%) (Auto) 0.0 % (0.0-7.0) Basophils (%) (Auto) 0.4 % (0.0-2.0) Neutrophils # (Auto) 5.6 10 ^3/uL (1.6-8.6) Lymphocytes # (Auto) 1.7 10 ^3/uL (0.4-5.4) Monocytes # (Auto) 0.1 10 ^3/uL (0-1.3) Eosinophils # (Auto) 0 10 ^3/uL (0-0.8) Basophils # (Auto) 0 10 ^3/uL (0-0.2) Nucleated Red Blood Cells 0.1 % Hemoglobin A1c 5.1 % A1C (<5.7) Total Bilirubin 0.3 mg/dL (0.2-1.0) Aspartate Amino Transferase (AST) 23 U/L (13-40) Alanine Aminotransferase (ALT) 21 U/L (7-40) Alkaline Phosphatase 172 U/L (46-116) Total Protein 7.5 g/dL (5.7-8.2) Albumin 4.4 g/dL (3.2-4.8) Troponin I High Sensitivity 5 ng/L (</=34) Test 11/09/25 07:58 Urine Color Light-yellow (Yellow) Urine Clarity Clear (Clear) Urine pH 5.5 (5.0-9.0) Urine Specific [place] 1.010 (1.001-1.035) Urine Protein 1+ (Negative) Urine Ketones Negative (Negative) Urine Blood Trace /uL (Negative) Urine Nitrite Negative (Negative) Urine Bilirubin Negative (Negative) Urine Urobilinogen Normal mg/dL (Negative) Urine Leukocyte Esterase Negative /uL (Negative) Urine RBC <1 /hpf (0 - 4) Urine Microscopic WBC 1 /HPF (0-5) Urine Squamous Epithelial Cells Few /hpf (<5) Urine Bacteria Few /hpf (None Seen) Urine Glucose Normal mg/dL (Normal) Other Laboratory Tests 11/11/25 05:17 11/10/25 04:45 Brief Hx & Hospital Course: Final diagnoses: Metabolic encephalopathy due to hypoglycemia Hypoglycemia Type 2 diabetes Alzheimer's dementia Hypertension Hypothyroidism Mixed hyperlipidemia She was hypoglycemic She was taking Insulin, Metformin and Glipizide at home DC home DC Glipizide Continue Metformin and Insulin Discussed with family at the bedside, questions answered F/U PCP ANGELICA Condition at Discharge: Stable Final Diagnosis/Problems List Metabolic encephalopathy due to hypoglycemia Hypoglycemia Type 2 diabetes Alzheimer's dementia Hypertension Hypothyroidism Mixed hyperlipidemia Discharge Disposition: Home SNF Discharge Will this Physician continue t: No Discharge Instruct/Medications Diet: Consistent carbohydrate, Cardiac 2g Na,low cholest Activity: No Restrictions, As Tolerated Follow Up/Referral: PCP ANGELICA Medications: Stop Glipizide Continue all other home meds Scheduled Fluoxetine Hcl (Fluoxetine Hcl), 10 MG PO DAILY, (Reported) Insulin NPH (Human) (Isophane) (Humulin N), 5 UNIT SC QAM, (Reported) Insulin NPH (Human) (Isophane) (Humulin N), 15 UNIT SC QPM, (Reported) Levothyroxine Sodium (Levothyroxine Sodium), 50 MCG PO AMHY, (Reported) Losartan Potassium (Losartan Potassium), 1 TAB PO DAILY, (Reported) Memantine Hydrochloride (Memantine HCl), 10 MG PO BID, (Reported) Metformin Hydrochloride (Metformin Hcl), 1 TAB PO BID, (Reported) Pyridoxine HCl (Vitamin B6), 100 MG PO DAILY, (Reported) Rosuvastatin Calcium (Rosuvastatin Calcium), 20 MG PO HS, (Reported) Discontinued Medications Glipizide (Glipizide), 20 MG PO BID, (Reported) Discharge Statement: "Patient was advised to return to the ER or call 911 if any headaches, dizziness, shortness of breath, chest pain, abdominal pain, bleeding, fevers, or worsening of medical condition. Patient was counseled about treatment plan, medications, possible side effects, patientverbalized understanding. All questions were answered to the best of my ability. This discharge took greater then 30 minutes in planning, reviewing documentation, counseling the patient, and discussing with other team members." ASSESSMENT ASSESSMENT Assessment Metabolic encephalopathy due to hypoglycemia Hypoglycemia Type 2 diabetes Alzheimer's dementia Hypertension Hypothyroidism Mixed hyperlipidemia Date of Service: Nov 11, 2025 Billing Provider: DAKOTAH COTO MD Common Visit Codes: 60658-FIC/OBS DISCH DAY >30min DAKOTAH COTO MD Nov 11, 2025 16:57
[2025-11-11 17:00] VITALS: BP 109/51; PULSE 94; RESP 18; TEMP 97.9; O2SAT 93
== END 2025-11-11 17:10 | disposition home or self-care (01) | DRG 637 ==
LOC: EDBD 07:12 → ER 07:12 → OVERFLOW 15:47 → CENTRAL 15:55 → WEST WING 18:13 → CENTRAL 11-10 00:26
PROVIDERS: ADMIT Internal Medicine Geriatric Medicine; ATTEND Internal Medicine Geriatric Medicine
DX: E11.649 Type 2 diabetes mellitus with hypoglycemia without coma (principal); G93.41 Metabolic encephalopathy; E03.9 Hypothyroidism, unspecified; F02.80 Dementia in other diseases classified elsewhere, unspecified severity, without behavioral disturbance, psychotic disturbance, mood disturbance, and anxiety; I10 Essential (primary) hypertension; E78.2 Mixed hyperlipidemia; G30.9 Alzheimer's disease, unspecified
CPT/HCPCS: 36415; 71045; 80048; 80053; 81001; 82962; 83036; 84484; 85025; 96360; 99291; 99292; G0378; J1815